=== PATIENT | female | born 1995 | race Hispanic/Latino ===

== ENCOUNTER 2021-05-25 15:53 | Emergency (ER) | payer OTHER ==
[~2021-05-25] VITALS: Ht 154.9 cm; Wt 68.8 kg
[2021-05-25] MEDS ORDERED: hair skin nails (16:26)
[2021-05-25] MEDS ORDERED: vitamin d (16:26)
[2021-05-25] MEDS ORDERED: IRON65TA2 PO (16:26)
[2021-05-25 20:15] LABS: BASO # 0.1 10^3/uL (0.0-0.2); BASO % 1.1 % (0.0-1.0); EOS # 0.1 10^3/uL (0.0-0.5); HEMATOCRIT 41.1 % (36.0-47.0); HEMOGLOBIN 13.5 g/dl (12.0-15.5); LYMPH # 1.8 10^3/uL (1.5-5.0); LYMPH % 28.8 % (24.0-44.0); MEAN CORPUSCULAR HEMOGLOBIN 29.6 pg (27.0-33.0); MEAN CORPUSCULAR HGB CONC 32.8 g/dl (32.0-36.5); MEAN CORPUSCULAR VOLUME 90.1 fl (80.0-96.0); MONO # 0.3 10^3/uL (0.0-0.8); MONO % 4.1 % (2.0-8.0); NEUTROPHILS # 4.1 10^3/uL (1.5-8.5); NEUTROPHILS % 64.8 % (36.0-66.0); PLATELET COUNT, AUTOMATED 285 10^3/uL (150-450); RED BLOOD COUNT 4.56 10^6/uL (4.00-5.40); WHITE BLOOD COUNT 6.3 10^3/uL (4.0-10.0)
--- NOTE | 2021-05-25 20:54 | REPVR ---
PROCEDURE INFORMATION: Exam: US Abdomen, Limited; Right Upper Quadrant Exam date and time: 05/25/2021 8:20 PM Age: 25 years old Clinical indication: Abdominal tenderness and bloating; Additional info: Ruq pain TECHNIQUE: Imaging protocol: US abdomen. Real time ultrasound with image documentation. Limited exam focused on the right upper quadrant. COMPARISON: No relevant prior studies available. FINDINGS: Liver: The liver demonstrates no focal defects. Gallbladder: The gallbladder demonstrates no stones and no wall thickening measuring 2 mm. There is a negative sono Spence's sign. Common bile duct: The CBD measures 2 mm. Pancreas: The pancreas is normal. Right kidney: The right kidney is normal measuring 9.9 cm with no hydronephrosis. IMPRESSION: Negative right upper quadrant sonogram. Electronically signed by: Hany Doyle On 05/25/2021 20:54:34 PM
[2021-05-25 21:22] LABS: ALBUMIN 4.2 GM/DL (3.2-5.2); BILIRUBIN,DIRECT 0.1 MG/DL (0.0-0.2); BILIRUBIN,TOTAL 0.4 MG/DL (0.2-1.0); TOTAL PROTEIN 7.6 GM/DL (6.4-8.2)
[2021-05-25 22:23] VITALS: BP 102/59
== END 2021-05-25 22:10 | disposition home or self-care (01) ==
LOC: M ED 15:53
DX: R10.11 Right upper quadrant pain (principal); R10.12 Left upper quadrant pain